=== PATIENT | male | born 2000 | race Caucasian/White ===

== ENCOUNTER 2022-01-03 00:52 | Emergency (ER) | payer SELFPAY ==
[~2022-01-03] VITALS: Ht 177.8 cm; Wt 77.0 kg
[2022-01-03 00:55] VITALS: BP 146/90
[2022-01-03] MEDS ORDERED: LORAZEPAM 0.5MG TABLET PO ONE (01:15)
[2022-01-03] MEDS ORDERED: ALBU6.7H15 INH (02:59)
[2022-01-03] MEDS ORDERED: LORA-249 MT (02:59)
== END 2022-01-03 10:13 | disposition home or self-care (01) ==
LOC: ER 01:02
DX: R06.02 Shortness of breath (principal); F41.9 Anxiety disorder, unspecified; J45.909 Unspecified asthma, uncomplicated
CPT/HCPCS: 71045; 93005; 99283